=== PATIENT | male | born 1995 | race Caucasian/White ===

== ENCOUNTER 2021-02-08 09:33 | Emergency (ER) | payer SELFPAY ==
[~2021-02-08] VITALS: Ht 185 cm; Wt 95.0 kg
[2021-02-08] MEDS ORDERED: fentaNYL INJ 100 MCG/2 ML AMP IVP STA (09:45)
--- NOTE | 2021-02-08 09:51 | ED GU-Male ---
General Chief Complaint: Male Reproductive Stated Complaint: LRQ PAIN History of Present Illness Date Seen by Provider: Feb 08, 2021 Time Seen by Provider: 09:42 Initial Comments 25-year-old male with right testicular pain, testicular swelling. The pain radiates up into his right groin. Reports that he awoke with it this morning. Reports that he had a similar episode about a week ago that resolved shortly so he did not come in. He denies any trauma. He denies any urinary symptoms, nausea or vomiting. Allergies and Home Medications Allergies Coded Allergies: No Known Drug Allergies (Unverified , 02/08/21) Patient Home Medication List Home Medication List Reviewed: Yes Review of Systems Review of Systems Constitutional: No chills, No fever EENTM: no symptoms reported Respiratory: No cough, No short of breath Cardiovascular: No chest pain, No palpitations Gastrointestinal: see HPI Genitourinary: see HPI Musculoskeletal: no symptoms reported Skin: no symptoms reported Endocrine: No Symptoms Reported Past Towzkih-Zllbuh-Ltpzcv Hx Past Med/Social Hx: Reviewed Nursing Past Med/Soc Hx Patient Social History Alcohol Use: Denies Use Smoking Status: Current Everyday Smoker Type Used: Cigarettes 2nd Hand Smoke Exposure: No Physical Exam Vital Signs Vital Signs - First Documented 02/08/21 10:00 Temp 36.4 Pulse 73 Resp 18 B/P (MAP) 150/84 (106) Pulse Ox 98 O2 Delivery Room Air Capillary Refill : Height, Weight, BMI Height: '" Weight: lbs. oz. kg; BMI Method: General Appearance: moderate distress HEENT: PERRL/EOMI Neck: full range of motion Cardiovascular: normal peripheral pulses, regular rate, rhythm Respiratory: lungs clear, normal breath sounds Gastrointestinal: soft, tenderness (Mild tenderness right groin) Male: testicular tenderness (Enlarged right testicle with erythema, extremely tender to palpation) Back: no CVA tenderness Extremities: normal range of motion Neurologic/Psychiatric: alert, normal mood/affect, oriented x 3 Progress/Results/Core Measures Suspected Sepsis SIRS Temperature: Pulse: Respiratory Rate: Laboratory Tests 02/08/21 09:55: White Blood Count 14.6H Blood Pressure / Mean: Laboratory Tests 02/08/21 09:55: Creatinine 0.87, Platelet Count 373, Total Bilirubin 0.3 Results/Orders Lab Results Laboratory Tests Test 02/08/21 09:40 3/24/21 09:55 Range/Units Urine Color YELLOW Urine Clarity CLOUDY H Urine pH 7.0 5-9 Urine Specific [place] 1.025 H 1.016-1.022 Urine Protein NEGATIVE NEGATIVE Urine Glucose (UA) NEGATIVE NEGATIVE Urine Ketones NEGATIVE NEGATIVE Urine Nitrite NEGATIVE NEGATIVE Urine Bilirubin NEGATIVE NEGATIVE Urine Urobilinogen 0.2 < = 1.0 MG/DL Urine Leukocyte Esterase TRACE H NEGATIVE Urine RBC (Auto) NEGATIVE NEGATIVE Urine RBC 0-2 /HPF Urine WBC 25-50 H /HPF Urine Squamous Epithelial Cells NONE /HPF Urine Crystals PRESENT H /LPF Urine Amorphous Sediment LARGE RICHY URATES H /LPF Urine Bacteria FEW H /HPF Urine Casts NONE /LPF Urine Mucus NEGATIVE /LPF Urine Culture Indicated YES White Blood Count 14.6 H 4.3-11.0 10^3/uL Red Blood Count 5.29 4.35-5.85 10^6/uL Hemoglobin 15.4 13.3-17.7 G/DL Hematocrit 45 40-54 % Mean Corpuscular Volume 86 80-99 FL Mean Corpuscular Hemoglobin 29 25-34 PG Mean Corpuscular Hemoglobin Concent 34 32-36 G/DL Red Cell Distribution Width 14.0 10.0-14.5 % Platelet Count 373 130-400 10^3/uL Mean Platelet Volume 8.9 7.4-10.4 FL Immature Granulocyte % (Auto) 0 % Neutrophils (%) (Auto) 71 42-75 % Lymphocytes (%) (Auto) 20 12-44 % Monocytes (%) (Auto) 8 0-12 % Eosinophils (%) (Auto) 1 0-10 % Basophils (%) (Auto) 0 0-10 % Neutrophils # (Auto) 10.4 H 1.8-7.8 X 10^3 Lymphocytes # (Auto) 2.9 1.0-4.0 X 10^3 Monocytes # (Auto) 1.1 H 0.0-1.0 X 10^3 Eosinophils # (Auto) 0.1 0.0-0.3 10^3/uL Basophils # (Auto) 0.1 0.0-0.1 10^3/uL Immature Granulocyte # (Auto) 0.1 0.0-0.1 10^3/uL Neutrophils % (Manual) 65 % Lymphocytes % (Manual) 17 % Monocytes % (Manual) 9 % Eosinophils % (Manual) 1 % Band Neutrophils 8 % Blood Morphology Comment NORMAL Sodium Level 139 135-145 MMOL/L Potassium Level 4.3 3.6-5.0 MMOL/L Chloride Level 103 98-107 MMOL/L Carbon Dioxide Level 29 21-32 MMOL/L Anion Gap 7 5-14 MMOL/L Blood Urea Nitrogen 14 7-18 MG/DL Creatinine 0.87 0.60-1.30 MG/DL Estimat Glomerular Filtration Rate > 60 BUN/Creatinine Ratio 16 Glucose Level 96 70-105 MG/DL Calcium Level 9.5 8.5-10.1 MG/DL Corrected Calcium 9.4 8.5-10.1 MG/DL Total Bilirubin 0.3 0.1-1.0 MG/DL Aspartate Amino Transf (AST/SGOT) 22 5-34 U/L Alanine Aminotransferase (ALT/SGPT) 30 0-55 U/L Alkaline Phosphatase 104 40-136 U/L Total Protein 7.6 6.4-8.2 GM/DL Albumin 4.1 3.2-4.5 GM/DL My Orders Orders - CORRALES,HUBERT L DO Cbc With Automated Diff (02/08/21 09:45) Comprehensive Metabolic Panel (02/08/21 09:45) Ua Culture If Indicated (02/08/21 09:45) Us Scrotum (Testicle) [id number] (02/08/21 09:45) Fentanyl Inj (Sublimaze Injection) (02/08/21 09:45) Neis Gualberto Dna Urine Test (02/08/21 09:45) Chlamydia Trachomatis Urine (02/08/21 09:45) Manual Differential (02/08/21 09:55) Urine Culture (02/08/21 09:40) Ceftriaxone For Iv Use (Rocephin For I (02/08/21 10:45) Azithromycin Tablet (Zithromax Tablet) (02/08/21 10:45) Medications Given in ED Current Medications Medications Dose Ordered Sig/Alfred Route Start Time Stop Time Status Last Admin Dose Admin Azithromycin 1,000 mg ONCE ONCE PO 02/08/21 10:45 02/08/21 10:46 DC 02/08/21 10:47 1,000 MG Ceftriaxone Sodium 1000 mg/ Sterile Water 10 ml @ 200 mls/hr ONCE ONCE IV 02/08/21 10:45 02/08/21 10:47 DC 02/08/21 10:46 200 MLS/HR Vital Signs/I&O 02/08/21 10:00 Temp 36.4 Pulse 73 Resp 18 B/P (MAP) 150/84 (106) Pulse Ox 98 O2 Delivery Room Air Capillary Refill : Progress Note : Progress Note Patient with significant epididymitis and orchitis on ultrasound which is consistent with UA and labs. He was treated with Rocephin and azithromycin in the ER. He will be discharged with doxycycline. He should follow-up with a primary care provider in a couple days for recheck of symptoms. Diagnostic Imaging Diagonstic Imaging: Ultrasound Comments Significant orchitis/epididymitis. No torsion, hydrocele Reviewed: Reviewed/Discussed Departure Impression Primary Impression: Orchitis, epididymitis, and epididymo-orchitis Disposition: 01 HOME, SELF-CARE Condition: Stable Departure-Patient Inst. Referrals: NO,LOCAL PHYSICIAN (PCP/Family) Primary Care Physician Patient Instructions: Epididymitis (DC), Hydrocele Add. Discharge Instructions: Tylenol or ibuprofen as needed for pain Follow-up with your primary care provider in a couple days for recheck of today's symptoms All discharge instructions reviewed with patient and/or family. Voiced understfarrukh campo. Scripts Doxycycline Hyclate (Doxycycline Hyclate) 100 Mg Tablet 100 MG PO BID, #20 TAB 0 Refills Prov: HUBERT CORRALES DO 02/08/21 HUBERT CORRALES DO Feb 08, 2021 09:51
[2021-02-08 10:33] LABS: BASOPHILS % (AUTO) 0 % (0-10); EOSINOPHILS % (AUTO) 1 % (0-10); HEMATOCRIT 45 % (40-54); HEMOGLOBIN 15.4 G/DL (13.3-17.7); LYMPHOCYTES % (AUTO) 20 % (12-44); MEAN CORPUSCULAR HEMOGLOBIN 29 PG (25-34); MEAN CORPUSCULAR HGB CONC 34 G/DL (32-36); MEAN CORPUSCULAR VOLUME 86 FL (80-99); MEAN PLATELET VOLUME 8.9 FL (7.4-10.4); MONOCYTES % (AUTO) 8 % (0-12); NEUTROPHILS # (AUTO) 10.4 X 10^3 (1.8-7.8); NEUTROPHILS % (AUTO) 71 % (42-75); PLATELET COUNT 373 10^3/uL (130-400); WHITE BLOOD COUNT 14.6 10^3/uL (4.3-11.0)
[2021-02-08 10:34] LABS: CLARITY,URINE CLOUDY; COLOR,URINE YELLOW; GLUCOSE, URINE (UA) NEGATIVE (NEGATIVE); KETONES,URINE NEGATIVE (NEGATIVE); NITRITE,URINE NEGATIVE (NEGATIVE); PROTEIN,URINE NEGATIVE (NEGATIVE)
[2021-02-08 10:34] LABS: BASOPHILS # (AUTO) 0.1 10^3/uL (0.0-0.1); EOSINOPHILS # (AUTO) 0.1 10^3/uL (0.0-0.3); LYMPHOCYTES # (AUTO) 2.9 X 10^3 (1.0-4.0); MONOCYTES # (AUTO) 1.1 X 10^3 (0.0-1.0)
[2021-02-08 10:35] LABS: AMORPHOUS SEDIMENT,UR LARGE AMOR URATES /LPF; BACTERIA,URINE FEW /HPF; BILIRUBIN,URINE NEGATIVE (NEGATIVE); LEUKOCYTE ESTERASE ,URINE TRACE (NEGATIVE); RBC,URINE 0-2 /HPF; WBC,URINE 25-50 /HPF
[2021-02-08 10:41] LABS: BAND NEUTROPHILS 8 %; CARBON DIOXIDE 29 MMOL/L (21-32); CHLORIDE 103 MMOL/L (98-107); EOSINOPHILS % (MANUAL) 1 %; LYMPHOCYTES % (MANUAL) 17 %; MONOCYTES % (MANUAL) 9 %; NEUTROPHILS % (MANUAL) 65 %; POTASSIUM 4.3 MMOL/L (3.6-5.0); RBC MORPH NORMAL; SODIUM 139 MMOL/L (135-145)
[2021-02-08 10:42] LABS: ALANINE AMINOTRANSFERASE 30 U/L (0-55); ALBUMIN 4.1 GM/DL (3.2-4.5); ALKALINE PHOSPHATASE 104 U/L (40-136); BILIRUBIN,TOTAL 0.3 MG/DL (0.1-1.0); BUN/CREATININE RATIO 16; CALCIUM 9.5 MG/DL (8.5-10.1); CREATININE SERUM 0.87 MG/DL (0.60-1.30); GFR ESTIMATED > 60; GLUCOSE 96 MG/DL (70-105); TOTAL PROTEIN 7.6 GM/DL (6.4-8.2)
[2021-02-08] MEDS ORDERED: cefTRIAXone FOR IV USE 1,000 MG in WATER (STERILE) FOR INJECTION 10 ML IV ONE (10:45)
[2021-02-08] MEDS ORDERED: AZITHROMYCIN 250 MG TAB (ZITHROMAX) PO ONE (10:45)
[2021-02-08] MEDS ORDERED: DOXY100T2 PO (11:07)
[2021-02-08 11:14] VITALS: BP 147/79
--- NOTE | 2021-02-08 11:24 | Diagnostic Imaging Report ---
PROCEDURE: US Scrotum. TECHNIQUE: Multiple Real-time grayscale images were obtained over the scrotum in various projections bilaterally. INDICATION: Right scrotal swelling and pain. FINDINGS: The right testicle is abnormally hypervascularized. There is some right-sided scrotal skin thickening and scrotal edema. The epididymis is prominent, heterogeneous, relatively hypoechoic, and also hypervascularized. There is a moderate-sized multiseptated right-sided hydrocele. No evidence for testicular abscess. No findings of torsion. The left scrotal contents appear normal. The left testicle and epididymis are normal in echotexture and morphology showing normal color Doppler blood flow. IMPRESSION: 1. Findings of right-sided epididymoorchitis with a multiseptated reactive hydrocele. No testicular abscess. No findings of torsion. 2. The left scrotal contents are normal. Dictated by: Dictated on workstation # [id number]
== END 2021-02-08 11:14 | disposition home or self-care (01) ==
LOC: ER FS 09:35
DX: N45.3 Epididymo-orchitis (principal); F17.210 Nicotine dependence, cigarettes, uncomplicated
CPT/HCPCS: 36415; 76870; 80053; 81000; 85007; 85027; 87088; 87491; 87591

== ENCOUNTER 2021-02-09 19:59 | Emergency (ER) | payer SELFPAY ==
[~2021-02-09 19:59] MED LIST: DOXY100T2 PO
[2021-02-09] MEDS ORDERED: fentaNYL INJ 100 MCG/2 ML AMP ONE (20:09)
--- NOTE | 2021-02-09 20:14 | ED GU-Male ---
General Stated Complaint: TESTICAL PAIN/SWELLING Source: patient Exam Limitations: no limitations History of Present Illness Date Seen by Provider: Feb 09, 2021 Time Seen by Provider: 20:00 Initial Comments Patient is a 25-year-old male who presents to the emergency department today with a chief complaint of severe right testicle pain. Patient was seen and evaluated in the emergency department yesterday and diagnosed with severe orchitis/epididymitis. He was treated with Rocephin and azithromycin and sent home with a prescription of doxycycline. Patient states that he is taking his doxycycline. Patient states that his pain was relatively well controlled with [id number] Tylenol until approximately 30 minutes prior to arrival when he had a sudden shooting pain from the testicle up into his right lower quadrant. Patient states he has not had pain like this before. It has been severe. He took 3 Tylenol at the onset about 30 minutes ago. He denies problems with urination. He is complaining of just significant right testicle pain. No recent fevers chills All other review of systems reviewed and negative except as stated. 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) Prior Genitourinary Problems: similar symptoms Modifying Factors: Improves With Analgesics (ovver the counter tylenol) Associated Symptoms: abdominal pain; No dysuria, No fever/chills Allergies and Home Medications Allergies Coded Allergies: No Known Drug Allergies (Unverified , 02/08/21) Home Medications Doxycycline Hyclate 100 Mg Tablet, 100 MG PO BID Prescribed by: HUBERT CORRALES on 02/08/21 1107 Patient Home Medication List Home Medication List Reviewed: Yes Review of Systems Review of Systems Constitutional: see HPI EENTM: no symptoms reported Respiratory: no symptoms reported Cardiovascular: no symptoms reported Gastrointestinal: abdominal pain Genitourinary: other (testicular pain, swelling and redness) Musculoskeletal: no symptoms reported Skin: no symptoms reported All Other Systemes Reviewed Negative Unless Noted: Yes Past Rvrdxci-Bmryuw-Qmfssz Hx Patient Social History Type Used: Cigarettes 2nd Hand Smoke Exposure: No Recent Hopitalizations: No Seasonal Allergies Seasonal Allergies: No Past Medical History Surgeries: No Respiratory: No Cardiac: No Neurological: No Genitourinary: No Gastrointestinal: No Musculoskeletal: No Endocrine: No HEENT: No Cancer: No Psychosocial: No Integumentary: No Blood Disorders: No Physical Exam Vital Signs Vital Signs - First Documented 02/09/21 20:00 Temp 36.8 Pulse 102 Resp 18 B/P (MAP) 159/83 (108) Pulse Ox 98 O2 Delivery Room Air Capillary Refill : Height, Weight, BMI Height: '" Weight: lbs. oz. kg; 27.00 BMI Method: General Appearance: WD/WN, moderate distress HEENT: PERRL/EOMI Neck: full range of motion Cardiovascular: regular rate, rhythm Respiratory: normal breath sounds, no respiratory distress, no accessory muscle use Gastrointestinal: soft, tenderness (mild tenderness in the right flank and lower quadrant) Male: erythema, inguinal tenderness, testicular tenderness (right testicle very swollen and edematous, extremely tender to palpation, poor cremasteric reflex) Extremities: normal inspection Neurologic/Psychiatric: alert, normal mood/affect, oriented x 3 Skin: normal color, warm/dry Progress/Results/Core Measures Suspected Sepsis SIRS Temperature: Pulse: Respiratory Rate: Blood Pressure / Mean: Results/Orders My Orders Orders - SUNNY GRIER MD Fentanyl Inj (Sublimaze Injection) (02/09/21 20:15) Fentanyl Inj (Sublimaze Injection) (02/09/21 20:09) Medications Given in ED Current Medications Medications Dose Ordered Sig/Alfred Route Start Time Stop Time Status Last Admin Dose Admin Fentanyl Citrate 50 mcg ONCE ONCE IM 02/09/21 20:15 02/09/21 20:20 DC 02/09/21 20:18 50 MCG Vital Signs/I&O 02/09/21 20:00 Temp 36.8 Pulse 102 Resp 18 B/P (MAP) 159/83 (108) Pulse Ox 98 O2 Delivery Room Air Capillary Refill : Progress Note : Time: 21:15 Progress Note Noted that the patient had eloped from the room, he did not receive any discharge instructions nor did he get orders for repeat testicular ultrasound to be done in [place]. Patient had been treated with 50 mcg of fentanyl IM prior to discharge. Departure Impression Primary Impression: Orchitis, epididymitis, and epididymo-orchitis Disposition: AGAINST MEDICAL ADVICE Condition: Against Medical Advice Departure-Patient Inst. Referrals: NO,LOCAL PHYSICIAN (PCP/Family) Primary Care Physician SUNNY GRIER MD Feb 09, 2021 20:14
[2021-02-09] MEDS ORDERED: fentaNYL INJ 100 MCG/2 ML AMP IM ONE (20:15)
[2021-02-09 21:20] VITALS: BP 159/83
== END 2021-02-09 21:20 | disposition left against medical advice (07) ==
LOC: EDUNIT# 19:59 → ER FS 20:00
DX: N45.3 Epididymo-orchitis (principal); I10 Essential (primary) hypertension
CPT/HCPCS: 99284

== ENCOUNTER 2022-02-14 05:16 | Emergency (ER) | payer OTHER ==
[~2022-02-14] VITALS: Ht 185.4 cm; Wt 98.7 kg
--- NOTE | 2022-02-14 05:31 | ED General ---
General Chief Complaint: Lower Extremity Stated Complaint: MED CLEAR Nursing Triage Note: Patient was brought in via [facility]. Patient states he was running from the police, tripped and fell. Patient reports falling onto the pavement on his right knee. A small abrasion with minimal bleeding is noted. Patient needs to be medically cleared for half-way. Source of Information: Patient, Police History of Present Illness Date Seen by Provider: Feb 14, 2022 Time Seen by Provider: 05:18 Initial Comments 26 yo male presents with law enforcement after having fallen on pavement while running from police. He has abrasion to right knee and elbow. He has some blood on his jeans from the abrasion. He is able to bear weight and walk without difficulty. Sheriff means brought him to the ED for clearance and evaluation since he had abrasions and EMS was called initially. Pt states he does not think there is much wrong other than abrasion but understands the officer was just needing him checked out per policy Timing/Duration: 1/2 Hour Severity: Mild Modifying Factors: worse with Movement (burning pain to skin from abrasion and contusion) Associated Systoms: No Chest Pain, No Cough, No Diaphoresis, No Fever/Chills, No Headaches, No Loss of Appetite, No Malaise, No Nausea/Vomiting, No Rash, No Seizure, No Shortness of Air, No Syncope, No Weakness Allergies and Home Medications Allergies Coded Allergies: No Known Drug Allergies (Unverified , 02/08/21) Patient Home Medication List Home Medication List Reviewed: Yes Doxycycline Hyclate (Doxycycline Hyclate) 100 Mg Tablet, 100 MG PO BID Prescribed by: HUBERT CORRALES on 02/08/21 1107 Review of Systems Review of Systems Constitutional: no symptoms reported EENTM: no symptoms reported Respiratory: no symptoms reported Cardiovascular: no symptoms reported Gastrointestinal: no symptoms reported Genitourinary: no symptoms reported Musculoskeletal: see HPI, other (mild pain to right knee and elbow from contusion and abrasion with fall) Skin: see HPI, other (superficial abrasions to right knee and elbow) Psychiatric/Neurological: No Symptoms Reported Past Hvykzrh-Lyqokc-Ukhbry Hx Patient Social History Tobacco Use?: No Substance use?: Yes Substance type: Methamphetamine, Marijuana Alcohol Use?: No Pt feels they are or have been: No Seasonal Allergies Seasonal Allergies: No Past Medical History Surgeries: No Respiratory: No Cardiac: No Neurological: No Genitourinary: No Gastrointestinal: No Musculoskeletal: No Endocrine: No HEENT: No Cancer: No Psychosocial: No Integumentary: No Blood Disorders: No Physical Exam Vital Signs Vital Signs - First Documented 02/14/22 05:23 Temp 37.0 Pulse 114 Resp 14 Pulse Ox 96 O2 Delivery Room Air Capillary Refill : Less Than 3 Seconds Height, Weight, BMI Height: '" Weight: lbs. oz. kg; 28.00 BMI Method: General Appearance: No Apparent Distress, WD/WN Neck: Full Range of Motion, Normal Inspection, Non Tender, Supple Respiratory: Chest Non Tender, Lungs Clear, Normal Breath Sounds, No Accessory Muscle Use, No Respiratory Distress Cardiovascular: Normal Peripheral Pulses, Tachycardia Extremity: Normal Capillary Refill, Normal Range of Motion, No Calf Tenderness, No Pedal Edema, Other (mild tenderness to right knee and elbow where he has superficial abrasions and contusion from fall) Neurologic/Psychiatric: Alert, Oriented x3, No Motor/Sensory Deficits, Normal Mood/Affect, 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 No foreign bodies embedded in wound. Right elbow abrasion was superficial and was not cleaned here in ED. He has normal range of motion and is NVT intact. No crepitus on exam. With him bearing weight without difficulty and having normal ROM, imaging was not deemed necessary. Treat symptomatically. Dress abrasion with non-stick dressing and antibiotic ointment. Counselled on wound care and management of contusion. Counselled on follow up and return precautions. Medically clear and stable to go with fire chief deputy for incarceration Departure Impression Primary Impression: Abrasion, right knee, initial encounter Additional Impressions: Abrasion of right elbow, initial encounter Contusion of right elbow, initial encounter Contusion of right knee, initial encounter Medical clearance for incarceration Disposition: HOME, SELF-CARE Condition: Stable Departure-Patient Inst. Decision time for Depature: 05:29 Referrals: NO,LOCAL PHYSICIAN (PCP) Primary Care Physician [facility] [phone] call to get established with primary care provider for follow up if having continued concerns Patient Instructions: Abrasions ED, Minor Contusion ED, Wound Care ED Add. Discharge Instructions: Keep abrasions clean with soap and water. May apply antibiotic ointment 2 times a day as needed to help keep wounds clean and help prevent infection. May take Ibuprofen 800 mg every 8 hours as needed for pain Check with clinic if having continued concerns Medically clear and stable for incarceration All discharge instructions reviewed with patient and/or family. Voiced understanding. JOSE REDDY MD Feb 14, 2022 05:31
== END 2022-02-14 05:33 | disposition home or self-care (01) ==
LOC: EDUNIT# 05:16 → ER FS 05:17
DX: S50.01XA Contusion of right elbow, initial encounter (principal); S80.01XA Contusion of right knee, initial encounter; W01.0XXA Fall on same level from slipping, tripping and stumbling without subsequent striking against object, initial encounter
CPT/HCPCS: 99283

== ENCOUNTER 2023-04-12 10:45 | Emergency (ER) | payer SELFPAY ==
--- NOTE | 2023-04-12 10:58 | ED Upper Extremity ---
General Chief Complaint: Upper Extremity Stated Complaint: LT HAND INJ Source: patient Exam Limitations: no limitations History of Present Illness Date Seen by Provider: April 12, 2023 Time Seen by Provider: 10:49 Initial Comments 27-year-old male with no pertinent past medical history that is [id number] coming in after a mini fridge landed on his left hand just prior to arrival. He is having constant, moderate to severe left hand pain which is worse with movement. He has not taken anything for the pain as of yet. Otherwise denying any weakness or numbness. Allergies and Home Medications Allergies Coded Allergies: No Known Drug Allergies (Unverified , 02/08/21) Patient Home Medication List Home Medication List Reviewed: Yes Doxycycline Hyclate (Doxycycline Hyclate) 100 Mg Tablet, 100 MG PO BID Prescribed by: HUBERT CORRALES on 02/08/21 1107 Review of Systems Constitutional: No fever EENTM: no symptoms reported Respiratory: no symptoms reported Cardiovascular: no symptoms reported Musculoskeletal: see HPI Past Prpuxkf-Bwvvvd-Wtpxdo Hx Patient Social History Substance use?: Yes Substance type: Methamphetamine, Marijuana Seasonal Allergies Seasonal Allergies: No Past Medical History Surgeries: No Respiratory: No Cardiac: No Neurological: No Genitourinary: No Gastrointestinal: No Musculoskeletal: No Endocrine: No HEENT: No Cancer: No Psychosocial: No Integumentary: No Blood Disorders: No Physical Exam Vital Signs Vital Signs - First Documented 04/12/23 10:50 Temp 36.6 Pulse 107 Resp 16 B/P (MAP) 147/98 (114) Pulse Ox 100 O2 Delivery Room Air Capillary Refill : Height, Weight, BMI Height: '" Weight: lbs. oz. kg; 28.00 BMI Method: General Appearance: WD/WN, no apparent distress HEENT: PERRL/EOMI, normal ENT inspection, pharynx normal Neck: normal inspection Cardiovascular: regular rate, rhythm, no edema, no murmur Respiratory: chest non-tender, lungs clear, normal breath sounds, no respiratory distress, no accessory muscle use Back: normal inspection Shoulder: normal inspection Elbow/Forearm: normal inspection, non-tender, no evidence of injury, normal ROM Wrist: Yes normal inspection, Yes non-tender, Yes no evidence of injury, Yes normal ROM Hand: Left (Pain along the third through fifth metacarpals on the hand, no scaphoid tenderness, normal distal sensation and capillary refill, normal testing of the radial, median, ulnar nerves) Neurologic/Psychiatric: no motor/sensory deficits, alert, normal mood/affect Skin: normal color, warm/dry Progress/Results/Core Measures Results/Orders My Orders Orders - SHIRA DARDEN MD Hydrocodone/Apap 5/325 Tablet (Lortab 5 (04/12/23 11:00) Ibuprofen Tablet (Motrin Tablet) (04/12/23 11:00) Hand 3 View Left (04/12/23 10:52) Ct Extremity Upper Left Wo (04/12/23 11:10) Medications Given in ED Current Medications Medications Dose Ordered Sig/Alfred Route Start Time Stop Time Status Last Admin Dose Admin Ibuprofen 600 mg ONCE ONCE PO 04/12/23 11:00 04/12/23 11:01 DC 04/12/23 11:11 600 MG Vital Signs/I&O 04/12/23 10:50 Temp 36.6 Pulse 107 Resp 16 B/P (MAP) 147/98 (114) Pulse Ox 100 O2 Delivery Room Air Progress Progress Note : Progress Note 27-year-old male with above history coming in due to left hand pain after refrigerator falling on it. ABCs were intact and vitals were stable on presentation. Physical exam with swelling and tenderness over the mostly base of the fourth metacarpal proximally. X-ray ordered and interpreted by me showing no obvious fracture or dislocation. The radiologist recommended a CT scan due to concerns for the base of the fourth metacarpal. They see a thin lucency that could be a fracture of the trapezoid versus a prominent vascular channel. Patient was given ibuprofen for pain. He was placed in a Colles' splint to keep his hand stationary. We will have him follow-up with orthopedics as an outpatient. Diagnostic Imaging Diagonstic Imaging: Xray (left hand), CT (left hand) Comments [facility] [place], [place] NAME: CHASTITYLESLIE Stanton [facility] REC#: [id number] PT STATUS: REG ER : 1995 PHYSICIAN: SHIRA DARDEN MD ADMIT DATE: 04/12/23/ER FS Draft Date of Exam:04/12/23 HAND 3 VIEW LEFT EXAMINATION: Left hand radiographs, 3 views. COMPARISON: None. HISTORY: 27-year-old male, left hand pain. FINDINGS: There is a contour deformity of the fourth metacarpal base without a clearly identified fracture line. There is also question of abnormal alignment of the articulating surface of the fourth metatarsal base relative to its adjacent carpal articulation. There is no identified radiopaque foreign body. The joint spaces are otherwise well preserved. IMPRESSION: 1. Contour deformity of the fourth metacarpal base without a well-visualized fracture line. There is also questionable abnormal alignment of the fourth metacarpal base articulating surface relative to its expected carpal articulation. Targeted small field of view CT without contrast is recommended for further evaluation. Dictated on workstation # [id number] Dict: 04/12/23 1104 Trans: 04/12/23 1108 [id number] [id number] Interpreted by: PEGGY WILHELM MD Electronically signed by: NAME: LESLIE HAYWOOD [facility] REC#: [id number] PT STATUS: REG ER : 1995 PHYSICIAN: SHIRA DARDEN MD ADMIT DATE: 04/12/23/ER FS Draft Date of Exam:04/12/23 CT EXTREMITY UPPER LEFT WO PROCEDURE: CT left upper extremity without contrast. TECHNIQUE: Multiple contiguous axial images were obtained through the left upper extremity without the use of intravenous contrast. Auto Exposure Controls were utilized during the CT exam to meet ALARA standards for radiation dose reduction. INDICATION: Head trauma. COMPARISON: Hand radiograph of 04/12/2023. FINDINGS: No acute fracture in the base of the fourth metacarpal. A thin lucency is present in the dorsal cortex of the trapezoid that could represent a nondisplaced fracture versus prominent vascular channel. The remainder of the carpal bones are intact. Alignment of the carpal and metacarpal bones is normal. Mild dorsal soft tissue swelling is noted. Intrinsic musculature of the hand is normal in bulk. IMPRESSION: 1. Potential nondisplaced fracture in the dorsal cortex of the trapezoid. 2. No fracture of the fourth metacarpal base or malalignment of the fourth CMC. Dictated on workstation # [id number] Dict: 04/12/23 1132 Trans: 04/12/23 1144 [id number] Interpreted by: SHERITA AVILA MD Electronically signed by: Departure Impression Primary Impression: Fracture of trapezoid of left wrist Qualified Codes: S62.185A - Nondisplaced fracture of trapezoid [smaller multangular], left wrist, initial encounter for closed fracture Disposition: 01 HOME, SELF-CARE Condition: Stable Departure-Patient Inst. Decision time for Depature: 11:55 Referrals: ELIEZER WILCOX NO,LOCAL PHYSICIAN (PCP) Primary Care Physician Patient Instructions: Forearm and Wrist Fractures ED Add. Discharge Instructions: There is a potential bone in your hand that may be nondisplaced and broken. It is also possible its not broken, it is difficult to tell. It will likely heal well. Keep the splint on until you follow-up with orthopedics, Shabbir Wilcox. His number is in this paperwork. Take 600 mg of ibuprofen every 6 hours as needed for pain. Scripts Ibuprofen (Ibuprofen) 600 Mg Tablet 600 MG PO Q6H PRN for PAIN-MILD for 5 Days, #20 TAB Prov: SHIRA DARDEN MD 04/12/23 Work/School Note: Work Release Form Date Seen in the Emergency Department: April 12, 2023 Return to Work: April 14, 2023 Restrictions: No Restrictions SHIRA DARDEN MD April 12, 2023 10:58
[2023-04-12] MEDS ORDERED: IBUPROFEN 600 MG (MOTRIN) TAB PO ONE (11:00)
[2023-04-12] MEDS ORDERED: HYDROcodone/APAP 5 MG/325 MG (LORTAB) TAB PO ONE (11:00)
--- NOTE | 2023-04-12 11:08 | Diagnostic Imaging Report ---
EXAMINATION: Left hand radiographs, 3 views. COMPARISON: None. HISTORY: 27-year-old male, left hand pain. FINDINGS: There is a contour deformity of the fourth metacarpal base without a clearly identified fracture line. There is also question of abnormal alignment of the articulating surface of the fourth metatarsal base relative to its adjacent carpal articulation. There is no identified radiopaque foreign body. The joint spaces are otherwise well preserved. IMPRESSION: 1. Contour deformity of the fourth metacarpal base without a well-visualized fracture line. There is also questionable abnormal alignment of the fourth metacarpal base articulating surface relative to its expected carpal articulation. Targeted small field of view CT without contrast is recommended for further evaluation. Dictated by: Dictated on workstation # [id number]
--- NOTE | 2023-04-12 11:44 | Diagnostic Imaging Report ---
PROCEDURE: CT left upper extremity without contrast. TECHNIQUE: Multiple contiguous axial images were obtained through the left upper extremity without the use of intravenous contrast. Auto Exposure Controls were utilized during the CT exam to meet ALARA standards for radiation dose reduction. INDICATION: Head trauma. COMPARISON: Hand radiograph of 04/12/2023. FINDINGS: No acute fracture in the base of the fourth metacarpal. A thin lucency is present in the dorsal cortex of the trapezoid that could represent a nondisplaced fracture versus prominent vascular channel. The remainder of the carpal bones are intact. Alignment of the carpal and metacarpal bones is normal. Mild dorsal soft tissue swelling is noted. Intrinsic musculature of the hand is normal in bulk. IMPRESSION: 1. Potential nondisplaced fracture in the dorsal cortex of the trapezoid. 2. No fracture of the fourth metacarpal base or malalignment of the fourth CMC. Dictated by: Dictated on workstation # [id number]
[2023-04-12] MEDS ORDERED: IBUP-1773 PO (11:50)
[2023-04-12 11:52] VITALS: BP 147/98
== END 2023-04-12 11:51 | disposition home or self-care (01) ==
LOC: EDUNIT# 10:45 → ER FS 10:47
DX: S62.185A Nondisplaced fracture of trapezoid [smaller multangular], left wrist, initial encounter for closed fracture (principal); Z28.310 Unvaccinated for COVID-19; W20.8XXA Other cause of strike by thrown, projected or falling object, initial encounter
CPT/HCPCS: 73130; 73200